=== PATIENT | male | born 1965 | race Caucasian/White ===

== ENCOUNTER → 2022-11-12 | Outpatient (CLI) | payer OTHER, SELFPAY ==
--- NOTE | 2022-11-12 17:52 | CT_ITS ---
INDICATION: follow up- lung mass EXAMINATION: CT CHEST WITH CONTRAST - CT Chest W/ Contrast Injection TECHNIQUE: Helically acquired images were obtained of the chest following IV contrast. A radiation dose optimization technique was used for this scan. IV Contrast dosage and agent: COMPARISON: 06/18/2022 FINDINGS: LUNGS, PLEURA AND LARGE AIRWAYS: No masses, consolidation, or edema. A previously noted wedge-shaped opacity in the left lower lobe has resolved and may have represented pneumonia or lung infarction. No pleural effusion or thickening. No pneumothorax. THYROID: No thyroid lesions. HEART AND PERICARDIUM: Heart size is normal. No pericardial effusion. VESSELS: Thoracic aorta is not dilated. No aortic dissection. No obvious central pulmonary embolism although this study was not performed with the pulmonary embolism protocol. MEDIASTINUM AND JINNY: No mediastinal or hilar adenopathy. Esophagus is unremarkable. No hiatal hernia. UPPER ABDOMEN: Hiatal hernia measuring 9 cm. BONES: No suspicious lytic or blastic abnormality. CT/Chest WITH Contrast IMPRESSION: A previously noted wedge-shaped opacity in the left lower lobe has resolved and may have represented pneumonia or lung infarction. Hiatal hernia measuring 9 cm. Electronically Signed: Jose Ortiz MD at 7:49 EST ,
[2022-11-12 18:20] LABS: CREATININE FINGERSTICK < 0.9 mg/dL (0.70-1.30); EGFR FINGERSTICK > 60.0000 mL/min (>60)
== END | disposition home or self-care (01) ==
PROVIDERS: Visit Provider Nurse Practitioner Family
DX: R91.8 Other nonspecific abnormal finding of lung field (principal); J84.10 Pulmonary fibrosis, unspecified; J84.89 Other specified interstitial pulmonary diseases
CPT/HCPCS: 71260; Q9967

== ENCOUNTER → 2024-07-01 | Outpatient (CLI) | payer OTHER, SELFPAY ==
[2024-07-01 12:51] LABS: Absolute Lymphocyte Count 1.64 X10^3/uL (0.83-4.51); Absolute Neutrophil Count 6.3 X10^3/uL (2.0-7.7); Basophil# 0.07 X10^3/uL; Basophil% 0.8 % (0-1); Eosinophil# 0.03 X10^3/uL; Eosinophils% 0.4 % (0-5); Hematocrit 46.9 % (40-54); Hemoglobin 15.8 g/dL (13.0-16.5); Lymphocyte # 1.64 X10^3/ul (0.83-4.51); Lymphocyte % 19.3 % (19-41); Mean Corp Hgb Conc 33.7 g/dL (32-36); Mean Corpuscular Hgb 30.8 pg (27.0-32.0); Mean Corpuscular Volume 91.4 fL (80-94); Mean Platelet Vol. 9.6 fl (6.2-12.0); Monocyte# 0.46 X10^3/uL; Monocyte% 5.4 % (0-10); NRBC Flagged by Analyzer 0 % (0-5); Neutrophil # 6.27 X10^3/uL (2.7-7.7); Neutrophil % 73.7 % (47-70); Platelet Count 270 K/mm3 (150-450); RBC Distribution Width CV 11.9 % (11.6-14.6); RBC Distribution Width SD 39.8 fl (35.1-43.9); Red Blood Count 5.13 M/mm3 (4.6-6.2); White Blood Count 8.5 K/mm3 (4.4-11.0)
[2024-07-01 13:11] LABS: Microalbumin,Random Urine 7.8 mg/L (NO RANGE EST.)
[2024-07-01 13:14] LABS: ALB/GLOB Ratio 1.2 RATIO (0.9-2.4); AST(SGOT) 16 U/L (15-37); Alanine Aminotransfer ALT/SGPT 25 U/L (16-61); Albumin, Serum 3.7 g/dL (3.2-5.0); Alkaline Phosphatase 58 U/L (45-117); Anion Gap 7 (5-15); BUN 16 mg/dL (7-18); BUN/Creat Ratio 20.1 RATIO (10-20); Calcium,Total 8.7 mg/dL (8.5-10.1); Chloride 107 mmol/L (98-107); Cholesterol 164 mg/dL (200); EST Glomerular Filtration Rate 105 mL/min (>60); Est Glom Filt Rate - Afr Amer 128 mL/min (>60); Globulin 3.1 g/dL (2.2-4.2); Glucose 101 mg/dL (74-106); High Density Lipoprotein 62 mg/dL; PSA,Total - Annual Screen 0.71 ng/mL (0.00-4.00); Protein, Total 6.8 g/dL (6.4-8.2); Sodium Level 138 mmol/L (136-145); Thyroid Stim Hormone (TSH) 0.579 uIU/mL (0.358-3.740); Triglycerides 55 mg/dL; Very Low Density Lipoprotein 11 mg/dL (5-40)
[2024-07-01 17:38] LABS: Vitamin B12 384 pg/mL (211-911); Vitamin D,25 Hydroxy 40.1 ng/mL
== END | disposition home or self-care (01) ==
LOC: VSLAB 12:06
PROVIDERS: PCP Nurse Practitioner Family; Visit Provider Nurse Practitioner Family
DX: E11.9 Type 2 diabetes mellitus without complications (principal); Z12.5 Encounter for screening for malignant neoplasm of prostate; E56.9 Vitamin deficiency, unspecified
CPT/HCPCS: 36415; 80053; 80061; 82043; 82306; 82607; 84153; 84443; 85025; G0103

== ENCOUNTER 2024-09-16 20:38 | Emergency (ER) | payer OTHER, SELFPAY ==
[2024-09-16 20:39] VITALS: BP 140/70; PULSE 83; RESP 24; TEMP 36.1; O2SAT 99; BMI 29.5
[2024-09-16 21:31] LABS: Absolute Lymphocyte Count 2.94 X10^3/uL (0.83-4.51); Absolute Neutrophil Count 10.2 X10^3/uL (2.0-7.7); Basophil# 0.06 X10^3/uL; Basophil% 0.4 % (0-1); Eosinophil# 0.02 X10^3/uL; Eosinophils% 0.1 % (0-5); Hemoglobin 15.5 g/dL (13.0-16.5); Lymphocyte # 2.94 X10^3/ul (0.83-4.51); Lymphocyte % 21.1 % (19-41); Mean Corp Hgb Conc 35.2 g/dL (32-36); Mean Corpuscular Hgb 31.4 pg (27.0-32.0); Mean Corpuscular Volume 89.1 fL (80-94); Mean Platelet Vol. 10.3 fl (6.2-12.0); Monocyte# 0.65 X10^3/uL; Monocyte% 4.7 % (0-10); NRBC Flagged by Analyzer 0 % (0-5); Neutrophil # 10.17 X10^3/uL (2.7-7.7); Neutrophil % 72.8 % (47-70); Platelet Count 254 K/mm3 (150-450); RBC Distribution Width CV 11.9 % (11.6-14.6); RBC Distribution Width SD 38.4 fl (35.1-43.9); Red Blood Count 4.94 M/mm3 (4.6-6.2)
[2024-09-16] MEDS: Lidocaine 1% (20 ml mdv) 20 ML Vial INFILT (21:37)
[2024-09-16] MEDS: Diphth,Pertuss(Acell),Tet Vac 0.5 ML Vial IM (21:37)
[2024-09-16 21:38] VITALS: BP 142/112; PULSE 100; RESP 22; O2SAT 97
[2024-09-16 21:52] LABS: ALB/GLOB Ratio 1.3 RATIO (0.9-2.4); AST(SGOT) 18 U/L (15-37); Alanine Aminotransfer ALT/SGPT 27 U/L (16-61); Albumin, Serum 3.9 g/dL (3.2-5.0); Alkaline Phosphatase 62 U/L (45-117); Anion Gap 8 (5-15); BUN 23 mg/dL (7-18); BUN/Creat Ratio 18.1 RATIO (10-20); Calcium,Total 9.2 mg/dL (8.5-10.1); Chloride 109 mmol/L (98-107); Creatinine, Serum 1.27 mg/dL (0.70-1.30); EST Glomerular Filtration Rate 61 mL/min (>60); Est Glom Filt Rate - Afr Amer 74 mL/min (>60); Estimated Creatinine Clearance 68.78 ml/min; Globulin 2.9 g/dL (2.2-4.2); Glucose 264 mg/dL (74-106); Potassium 3.2 mmol/L (3.5-5.1); Protein, Total 6.8 g/dL (6.4-8.2); Sodium Level 138 mmol/L (136-145)
[2024-09-16 21:57] LABS: Alcohol, Blood (Medical)-Serum < 3.0 mg/dL
[2024-09-16 22:00] VITALS: BP 162/78; PULSE 99; RESP 16; O2SAT 97
[2024-09-16 22:02] LABS: International Normalized Ratio 1.1; Prothrombin Time (Protime)PT. 13.8 SECONDS (11.7-14.9)
[2024-09-16 22:03] LABS: Partial Thromboplast Time 22.9 Seconds (24.1-36.2)
[2024-09-16 22:35] VITALS: BP 165/83; PULSE 97; RESP 20; TEMP 36.6; O2SAT 96
[2024-09-16 22:36] LABS: Amphetamine Urine VISTA NEGATIVE (<1000 ng/mL); Barbiturate Urine VISTA NEGATIVE (< 200 ng/mL); Benzodiazepine Urine VISTA NEGATIVE (< 200 ng/mL); Cocaine Urine VISTA NEGATIVE (< 300 ng/mL); Ecstacy Urine VISTA NEGATIVE (< 500 ng/mL); Methadone Urine VISTA NEGATIVE (< 300 ng/mL); PCP Urine VISTA NEGATIVE (< 25 ng/mL); THC Urine VISTA NEGATIVE (< 50 ng/mL); Vista UDS pH Range 4
[2024-09-16] MEDS: POTASSIUM CHLORIDE 10 MEQ IV (22:43)
[2024-09-16] MEDS: DEXTROSE IV (22:43)
== END 2024-09-16 22:50 | disposition short-term general hospital (02) ==
LOC: ED 22:13
PROVIDERS: Physician Assistant; Emergency Provider Emergency Medicine; PCP Nurse Practitioner Family; Visit Provider Emergency Medicine
DX: S12.14XA Type III traumatic spondylolisthesis of second cervical vertebra, initial encounter for closed fracture (principal); S22.028A Other fracture of second thoracic vertebra, initial encounter for closed fracture; E11.9 Type 2 diabetes mellitus without complications; S01.01XA Laceration without foreign body of scalp, initial encounter; V59.9XXA Occupant (driver) (passenger) of pick-up truck or van injured in unspecified traffic accident, initial encounter; I10 Essential (primary) hypertension; Z79.84 Long term (current) use of oral hypoglycemic drugs; Z79.899 Other long term (current) drug therapy; Z23 Encounter for immunization
CPT/HCPCS: 12002; 70450; 70496; 70498; 71260; 72125; 74177; 80053; 80307; 82077; 85025; 85610; 85730; 90715; 96374; 99285; Q9967; A4216